=== PATIENT | female | born 1970 | race Caucasian/White ===

== ENCOUNTER 2020-07-02 18:24 | Emergency (ER) | payer MEDICAID ==
[~2020-07-02] VITALS: Ht 172.7 cm; Wt 77.3 kg
[2020-07-02 18:36] VITALS: BP 112/60
--- NOTE | 2020-07-02 19:17 | NUR ---
PT NOT ON AMBO DECK. WILL RE-CHECK
== END 2020-07-02 19:20 | disposition left against medical advice (07) ==
LOC: ER 18:25
DX: M79.18 Myalgia, other site (principal); R05 Cough; R09.89 Other specified symptoms and signs involving the circulatory and respiratory systems; Z53.21 Procedure and treatment not carried out due to patient leaving prior to being seen by health care provider

== ENCOUNTER 2023-11-18 11:26 | Emergency (ER) | payer MEDICAID ==
[~2023-11-18] VITALS: Ht 172.7 cm; Wt 63.4 kg
[2023-11-18 11:43] VITALS: TEMP 97.1
[2023-11-18] MEDS: LIDOcaine 1% 30ml preserv. free vial IJ ONE (12:50)
[2023-11-18] MEDS ORDERED: CEPH-585 PO (13:34)
[2023-11-18 14:40] VITALS: BP 135/83; PULSE 61; RESP 16; O2SAT 96
== END 2023-11-18 14:43 | disposition home or self-care (01) ==
LOC: ER 11:27
DX: S61.217A Laceration without foreign body of left little finger without damage to nail, initial encounter (principal); Z87.891 Personal history of nicotine dependence; Z79.2 Long term (current) use of antibiotics; W19.XXXA Unspecified fall, initial encounter; Y93.89 Activity, other specified; Y92.89 Other specified places as the place of occurrence of the external cause; Y99.8 Other external cause status
CPT/HCPCS: 12001; 73140; 99284; A6258

== ENCOUNTER 2023-11-29 10:43 | Emergency (ER) | payer MEDICAID ==
[~2023-11-29] VITALS: Ht 172.7 cm; Wt 63.6 kg
[2023-11-29 10:49] VITALS: BP 122/75; PULSE 70; RESP 16; O2SAT 98
[2023-11-29 11:24] VITALS: TEMP 98.6
== END 2023-11-29 11:25 | disposition home or self-care (01) ==
LOC: ER 10:44
DX: Z48.02 Encounter for removal of sutures (principal); F15.90 Other stimulant use, unspecified, uncomplicated
CPT/HCPCS: 99281

== ENCOUNTER 2024-07-14 07:35 | Emergency (ER) | payer MEDICAID ==
[~2024-07-14] VITALS: Ht 172.7 cm; Wt 65.2 kg
[2024-07-14 07:40] VITALS: BP 133/77; PULSE 65; RESP 16; TEMP 98.5; O2SAT 99
[2024-07-14] MEDS ORDERED: SULF1TAB45 PO (07:56)
[2024-07-14] MEDS: CefTRIAXone 1000mg IM Kit (w/lidocaine diluent) IM ONE (08:00)
== END 2024-07-14 08:37 | disposition home or self-care (01) ==
LOC: ER 07:35
DX: K13.0 Diseases of lips (principal); F15.90 Other stimulant use, unspecified, uncomplicated; Z79.899 Other long term (current) drug therapy
CPT/HCPCS: 96372; 99283; J0696

== ENCOUNTER → 2024-10-03 | Emergency (ER) | payer MEDICAID ==
[~2024-10-03] VITALS: Ht 172.7 cm; Wt 64.3 kg
[~2024-10-03] MED LIST: CEPH-585 PO
[2024-10-03 12:42] VITALS: BP 151/76; PULSE 89; RESP 18; O2SAT 98
--- NOTE | 2024-10-03 13:07 | Physician Documentation ---
History of Present Illness ~ Chief Complaint: Wound Stated Complaint: CELLULITIS Time Seen by MD: 12:46 Primary Medical Doctor: none HPI This is a 54-year-old female who presents with one day of pain and swelling to her left chin, patient reports history of cellulitis and reports this is similar to previous episode of cellulitis. Patient reports no fever, chills, or other systemic symptoms. Patient reports feels otherwise well. Reports no other symptoms or concerns. Patient reports no history of MRSA. Tetanus within 5 years?: Yes Medication Reconciliation Allergies: Coded Allergies: No Known Allergies (Unverified , 11/29/23) Scheduled Cephalexin*Monohydrate* (Keflex*), 1 CAP PO QID Past Medical History Past Medical History: *DERMATOLOGY*, Cellulitis Past Surgical History: noncontributory Alcohol Use: Sober Drug Use: methamphetamine Lives In: Home Occupation: employed Review of Systems ROS Pain and swelling to left chin as stated above in the HPI, otherwise all systems are reviewed and negative. Physical Exam Vital Signs: Temperature: 98.7, Source: Temporal, Heart Rate: 89, Respiratory Rate: 18, BP: 151/76, Pulse Oximetry: 98, Weight: 64.350 Physical Exam VITALS: Reviewed and as above. GENERAL: Alert, nontoxic appearing, no apparent distress. HEENT: No facial swelling RESPIRATORY: No increased work of breathing, no respiratory distress, speaking in full clear sentences SKIN: 1 cm x 1 cm area of erythema and minimal induration to left lateral chin, no fluctuance, no purulent discharge Progress Results/Orders Results/Orders Vital Signs 10/03/24 10/03/24 12:42 13:18 Temp 98.7 98.7 Pulse 89 Resp 18 B/P (MAP) 151/76 Pulse Ox 98 Medical Decision Making Findings This 54-year-old female presented with an area of pain and swelling to her left chin physical exam demonstrated a small erythematous area of induration consiste nt with cellulitis, patient is otherwise well-appearing and hemodynamically stable with remainder of physical exam benign. There is no evidence of rapidly progressing symptoms, crepitus, pain out of proportion, pain away from site or other signs/symptoms concerning for necrotizing fasciitis, myositis, or other deep tissue infection. I considered other high-risk diagnoses such as acute osteomyelitis, deep space abscess, septic joint, foreign body, or deep vein thrombosis or septic phlebitis. Patient is appropriate for outpatient follow up. Patient initiated on oral antibiotics for cellulitis. Patient given strict return precautions including rapidly progressing symptoms, pain out of proportion/severe pain, mucosal involvement, and/or fever > 100.4. Differential Dx:Considerations: Include: Cellulitis, Healing wound, Other (Osteomyelitis, allergic reaction, contact dermatitis, erysipelas) Departure Disposition: HOME / SELF CARE / HOMELESS Impression: Primary Impression: Cellulitis Qualified Codes: L03.211 - Cellulitis of face Condition: Improved Discharge Instructions: Cellulitis, Adult Additional Instructions: Please take the antibiotics as prescribed. You may use ibuprofen and or Tylenol as needed for pain as directed by [id number] packaging. Please follow up with your primary care provider in the next few days. Please return to the emergency department for any new or worsening concerning symptoms. Referrals: NO PRIMARY CARE PROVIDER (PCP) Prescriptions Cephalexin*Monohydrate* (Keflex*) 500 Mg Capsule 1 CAP PO QID for 5 Days, #20 CAP Prov: VALARIE PACE 10/03/24 Education Educated: Patient Educated regarding: diagnosis, treatment, prognosis, need for follow up Signature Scribe Signature: No scribe Attestation: The note accurately reflects work and decisions made by me.PRANAV Rankin 10/03/24 21:08 VALARIE PACE Oct 03, 2024 13:07
[2024-10-03 13:18] VITALS: TEMP 98.7
== END | disposition home or self-care (01) ==
LOC: ER 12:37
DX: L03.211 Cellulitis of face (principal); F15.90 Other stimulant use, unspecified, uncomplicated; F10.90 Alcohol use, unspecified, uncomplicated; Y90.9 Presence of alcohol in blood, level not specified
CPT/HCPCS: 99283